=== PATIENT | female | born 1950 | race Caucasian/White ===

== ENCOUNTER → 2017-06-06 | Outpatient (CLI) | payer OTHER | LOC: BMCIMAGING 09:47 | PROVIDERS: ATTEND Internal Medicine | DX: Z13.820 Encounter for screening for osteoporosis (principal); M85.80 Other specified disorders of bone density and structure, unspecified site ==

== ENCOUNTER → 2017-11-18 | Outpatient (CLI) | payer OTHER | LOC: BMCIMAGING 08:44 | PROVIDERS: ATTEND Internal Medicine | DX: Z12.31 Encounter for screening mammogram for malignant neoplasm of breast (principal) ==

== ENCOUNTER → 2018-01-09 | Outpatient (CLI) | payer OTHER | LOC: BMCIMAGING 17:11 | PROVIDERS: ATTEND Family Medicine | DX: S82.64XA Nondisplaced fracture of lateral malleolus of right fibula, initial encounter for closed fracture (principal) ==

== ENCOUNTER → 2018-02-01 | Outpatient (CLI) | payer OTHER | LOC: BMCIMAGING 09:43 | PROVIDERS: ATTEND Podiatrist Foot & Ankle Surgery | DX: S82.61XD Displaced fracture of lateral malleolus of right fibula, subsequent encounter for closed fracture with routine healing (principal) ==

== ENCOUNTER → 2018-02-22 | Outpatient (CLI) | payer OTHER | LOC: BMCIMAGING 09:34 | PROVIDERS: ATTEND Podiatrist Foot & Ankle Surgery | DX: S82.61XD Displaced fracture of lateral malleolus of right fibula, subsequent encounter for closed fracture with routine healing (principal); S92.901D Unspecified fracture of right foot, subsequent encounter for fracture with routine healing ==

== ENCOUNTER → 2018-11-27 | Outpatient (CLI) | payer OTHER | LOC: BMCIMAGING 13:23 | PROVIDERS: ATTEND Internal Medicine | DX: Z12.31 Encounter for screening mammogram for malignant neoplasm of breast (principal) ==